=== PATIENT | male | born 1985 | race Caucasian/White ===

== ENCOUNTER 2016-10-18 09:04 | Emergency (ER) | payer SELFPAY ==
--- NOTE | ~2016-10-18 | CT71 ---
[facility] A Service of [facility] RADIOLOGY TEXT RESULTS PATIENT: RAJI DEL CID LOCATION: SED : 85 UNIT #: [id number] AGE: [address]: Cosme Kohli MD SEX: M ORDER DR: [id number] [address] [address] [id number] E MR#: [id number] Acc #: [id number] NAME: RAJI DEL CID : 1985 SEX: M STUDY DATE/TIME: 10/18/2016 9:42 UNIT: SED ROOM: STUDY DESCRIPTION: CT Head Wo Contrast Attending Physician: Cosme Kohli M.D. Ordering Physician: Cosme Kohli M.D. Primary Care Physician: No Primary Care Physician MEDICAL IMAGING REPORT This report is preliminary unless electronic signature is present. EXAM CT brain without contrast, 10/18. COMPARISON 03/03/2016 TECHNIQUE Transaxial imaging of the brain was performed without contrast media and compared to the study of 03/03/2016. This CT exam was performed with one or more of the following radiation dose reduction techniques: automatic exposure control, adjustment of mA and/or kV according to patient size, and iterative reconstruction. HISTORY Dizziness and headache for 2 days. Elevated blood pressure FINDINGS Ventricular size and configuration is normal. No intra or extraaxial mass lesions, fluid collections, or mass effect are seen. No focal areas of low attenuation or hemorrhage are identified. Bone windows are reviewed. These appear normal. CONCLUSION Negative noncontrast CT of the brain. Dictated by... Vishal Quan M.D. THIS IS AN ELECTRONICALLY VERIFIED REPORT [facility] A Service of [facility] RADIOLOGY TEXT RESULTS PATIENT: RAJI DEL CID LOCATION: SED : 85 UNIT #: [id number] AGE: [address]: Cosme Kohli MD SEX: M ORDER DR: Vishal Quan M.D. at 10/19/2016 8:00 AM SHAREE/maria elena TD: 10/18/2016 10:56 JOB #: [id number] MEDICAL IMAGING REPORT
[~2016-10-18 09:04] MED LIST: ALLEGRA ALLERGY60 MG; FISH OIL300 MG; MONTELUKAST SOD10 MG; MULTI VITAMIN1 EACH; NAPROXEN375 M1; NO MEDICATIONS; PANTOPRAZOLE SO20 MG PO; PRINIVIL5 MG
== END 2016-10-18 10:48 | disposition home or self-care (01) ==
LOC: SED 09:04
DX: J06.9 Acute upper respiratory infection, unspecified (principal); R51 Headache; R42 Dizziness and giddiness; K21.9 Gastro-esophageal reflux disease without esophagitis; I10 Essential (primary) hypertension; Z98.890 Other specified postprocedural states
CPT/HCPCS: 70450; 99284